=== PATIENT | male | born 2000 | race Caucasian/White ===

== ENCOUNTER 2024-11-24 11:45 | Emergency (ER) | payer BC ==
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
[2024-11-24 13:58] VITALS: BP 126/83; TEMP 98.1; O2SAT 98
== END 2024-11-24 13:39 | disposition home or self-care (01) ==
LOC: ER 11:45
DX: S09.90XA Unspecified injury of head, initial encounter (principal); R51.9 Headache, unspecified
CPT/HCPCS: 70551; 99281